=== PATIENT | female | born 1965 | race Caucasian/White ===

== ENCOUNTER 2017-10-07 10:27 | Emergency (ER) | payer BC, MEDICAID ==
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
== END 2017-10-07 12:04 | disposition home or self-care (01) ==
LOC: VM.ED 10:27
DX: S00.03XA Contusion of scalp, initial encounter (principal); Z79.899 Other long term (current) drug therapy; Y08.09XA Assault by strike by other specified type of sport equipment, initial encounter
CPT/HCPCS: 70450; 72125; 73030-LT; 99284

== ENCOUNTER 2017-10-08 10:51 | Emergency (ER) | payer BC ==
[2017-10-08] MEDS ORDERED: Metoclopramide 10 MG Tab PO ONE (11:15)
[2017-10-08] MEDS ORDERED: Ketorolac 60 MG/2 ML SDV IM ONE (11:16)
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
== END 2017-10-08 11:40 | disposition home or self-care (01) ==
LOC: VM.ED 10:51
DX: S06.0X9A Concussion with loss of consciousness of unspecified duration, initial encounter (principal); I10 Essential (primary) hypertension; Z79.899 Other long term (current) drug therapy; Z87.891 Personal history of nicotine dependence; Y04.2XXA Assault by strike against or bumped into by another person, initial encounter
CPT/HCPCS: 96372; 99283; A9270; J1885